=== PATIENT | male | born 1965 | race Caucasian/White ===

== ENCOUNTER 2021-04-11 19:57 | Emergency (ER) | payer SELFPAY ==
[~2021-04-11] VITALS: Ht 175.3 cm; Wt 66.2 kg
[2021-04-11 20:08] VITALS: BP 122/83; Ht 175.3 cm; Wt 66.2 kg
[2021-04-11] MEDS ORDERED: BACTRIM DS TAB1 EAC1 PO (21:44)
== END 2021-04-11 21:54 | disposition home or self-care (01) ==
LOC: D.ER 19:57
DX: L02.416 Cutaneous abscess of left lower limb (principal)